=== PATIENT | male | born 1960 | race Caucasian/White ===

== ENCOUNTER 2018-07-29 18:21 | Emergency (ER) | payer SELFPAY ==
[~2018-07-29] VITALS: Ht 170.2 cm; Wt 54.5 kg
[2018-07-29 18:21] VITALS: BP 150/94
[2018-07-29] MEDS ORDERED: UNK HTN MED PO (18:29)
[2018-07-29] MEDS ORDERED: [UNRECOGNIZED DRUG - REMARK] PO (18:29)
== END 2018-07-29 19:12 | disposition left against medical advice (07) ==
LOC: EMS 18:24
DX: M79.606 Pain in leg, unspecified (principal); Z53.21 Procedure and treatment not carried out due to patient leaving prior to being seen by health care provider